=== PATIENT | male | born 1975 | race Caucasian/White ===

== ENCOUNTER 2016-10-04 16:07 | Emergency (ER) | payer MEDICARE, OTHER | END 2016-10-04 17:20 | disposition home or self-care (01) | LOC: FER 16:07 | DX: G44.209 Tension-type headache, unspecified, not intractable (principal); I47.1 Supraventricular tachycardia; F43.10 Post-traumatic stress disorder, unspecified; F17.200 Nicotine dependence, unspecified, uncomplicated; Z88.0 Allergy status to penicillin; Z88.8 Allergy status to other drugs, medicaments and biological substances | CPT/HCPCS: J1885 ==

== ENCOUNTER 2016-10-11 17:05 | Emergency (ER) | payer MEDICARE, OTHER | END 2016-10-11 19:04 | disposition home or self-care (01) | LOC: FER 17:05 | DX: J20.9 Acute bronchitis, unspecified (principal); K31.84 Gastroparesis; F17.210 Nicotine dependence, cigarettes, uncomplicated; Z88.0 Allergy status to penicillin; Z88.8 Allergy status to other drugs, medicaments and biological substances; Z79.899 Other long term (current) drug therapy | CPT/HCPCS: 71020; 94640 ==

== ENCOUNTER 2016-10-17 12:00 | Emergency (ER) | payer MEDICARE, OTHER ==
[2016-10-17 12:54] LABS: BASOPHIL 0.4 % (0-2); EOSINOPHIL 0.6 % (0-5); HCT 44.2 % (42.0-52.0); HGB 15.6 g/dl (13.2-18.0); LYMPHOCYTE 34.4 % (15-48); MCH 28.6 pg (25.0-31.0); MCHC 35.3 g/dL (32.0-36.0); MCV 81.1 fL (78.0-100.0); MONOCYTE 6.4 % (0-12); MPV 9.3 fL (6.0-9.5); NEUTROPHIL 58.2 % (41-80); PLT 277 K/uL (150-400); RBC 5.45 M/uL (4.70-6.00); RDW 13.3 % (11.5-14.0); WBC 10.2 K/uL (4.0-10.5)
[2016-10-17 13:08] LABS: BILIRUBIN NEGATIVE (NEGATIVE); BLOOD NEGATIVE Ery/uL (NEGATIVE); CLARITY CLEAR (CLEAR); COLOR YELLOW (YELLOW); GLUCOSE (U) NORMAL (NORMAL); KETONE (U) NEGATIVE (NEGATIVE); LEUKOCYTES NEGATIVE Leu/uL (NEGATIVE); NITRITE NEGATIVE (NEGATIVE); PROTEIN NEGATIVE (NEGATIVE); SPECIFIC GRAVITY <=1.005 (1.001-1.030); UROBILINOGEN 0.2 mg/dL (0.2-1.0)
[2016-10-17 13:15] LABS: CREATININE 1.3 mg/dL (0.7-1.2); POTASSIUM 4.3 mmol/L (3.5-5.1)
[2016-10-17 13:16] LABS: LYMPHOCYTE(M) 40 % (15-48); MONOCYTE(M) 6 % (0-12); NEUTROPHILS(M) 54 % (41-80); PLATELET ESTIMATE NORMAL; PLATELET MORPHOLOGY NORMAL; TOTAL CELL COUNT 100
[2016-10-17 13:17] LABS: BENZODIAZEPINES POSITIVE (NEGATIVE)
[2016-10-17 13:18] LABS: AMPHETAMINES NEGATIVE (NEGATIVE); BARBITURATES NEGATIVE (NEGATIVE); COCAINE NEGATIVE (NEGATIVE); MARIJUANA (THC) POSITIVE (NEGATIVE); METHADONE NEGATIVE (NEGATIVE); TRICYCLIC ANTIDEPRESSANT NEGATIVE (NEGATIVE)
== END 2016-10-17 14:27 | disposition home or self-care (01) ==
LOC: FER 12:00
PROVIDERS: Emergency Medicine
DX: J40 Bronchitis, not specified as acute or chronic (principal); M94.0 Chondrocostal junction syndrome [Tietze]; I11.9 Hypertensive heart disease without heart failure; I31.9 Disease of pericardium, unspecified; F41.9 Anxiety disorder, unspecified; F17.200 Nicotine dependence, unspecified, uncomplicated; Z87.19 Personal history of other diseases of the digestive system; Z88.0 Allergy status to penicillin; Z88.6 Allergy status to analgesic agent; Z88.8 Allergy status to other drugs, medicaments and biological substances; Z98.890 Other specified postprocedural states
CPT/HCPCS: 36415; 71010; 80048; 80305; 81003; 84484; 85379; 85651; 86140; 93005; 94640; J1885

== ENCOUNTER 2016-11-08 19:57 | Emergency (ER) | payer MEDICARE, OTHER ==
[2016-11-08 21:11] LABS: BILIRUBIN NEGATIVE (NEGATIVE); BLOOD 1+ Ery/uL (NEGATIVE); CLARITY CLEAR (CLEAR); COLOR YELLOW (YELLOW); GLUCOSE (U) NORMAL (NORMAL); KETONE (U) NEGATIVE (NEGATIVE); LEUKOCYTES NEGATIVE Leu/uL (NEGATIVE); NITRITE NEGATIVE (NEGATIVE); PROTEIN NEGATIVE (NEGATIVE); SPECIFIC GRAVITY <=1.005 (1.001-1.030); UROBILINOGEN 0.2 mg/dL (0.2-1.0)
[2016-11-08 21:20] LABS: MUCOUS MODERATE; SQUAMOUS EPITHELIAL CELLS RARE
[2016-11-08 21:37] LABS: BASOPHIL 0.2 % (0-2); EOSINOPHIL 0.3 % (0-5); HCT 46.4 % (42.0-52.0); HGB 16.1 g/dl (13.2-18.0); LYMPHOCYTE 22.2 % (15-48); MCH 28.2 pg (25.0-31.0); MCHC 34.7 g/dL (32.0-36.0); MCV 81.3 fL (78.0-100.0); MONOCYTE 12.7 % (0-12); MPV 9.3 fL (6.0-9.5); NEUTROPHIL 64.6 % (41-80); PLT 249 K/uL (150-400); RBC 5.71 M/uL (4.70-6.00); RDW 13.8 % (11.5-14.0); WBC 12.2 K/uL (4.0-10.5)
[2016-11-08 22:18] LABS: ALBUMIN 3.8 g/dL (3.5-5.0); BILIRUBIN - TOTAL 0.4 mg/dL (0.1-1.0); CREATININE 1.2 mg/dL (0.7-1.2); GLOBULIN (CALCULATION) 3.6 g/dL (2.2-4.2); POTASSIUM 3.8 mmol/L (3.5-5.1); TOTAL PROTEIN 7.4 g/dL (6.4-8.3)
== END 2016-11-08 23:10 | disposition home or self-care (01) ==
LOC: FER 19:57
PROVIDERS: Nurse Practitioner Family
DX: R31.9 Hematuria, unspecified (principal); R19.7 Diarrhea, unspecified; R11.2 Nausea with vomiting, unspecified; R50.9 Fever, unspecified; J44.9 Chronic obstructive pulmonary disease, unspecified; F17.210 Nicotine dependence, cigarettes, uncomplicated; Z88.0 Allergy status to penicillin; Z88.3 Allergy status to other anti-infective agents
CPT/HCPCS: 36415; 80053; 81001; 85025

== ENCOUNTER 2020-09-27 20:52 | Emergency (ER) | payer MEDICARE, OTHER ==
[~2020-09-27 20:52] MED LIST: COMBIVENT RESPIM4 GM INH; MUCINEX D ER 61 EACH PO; PROAIR HFA8.5 GM INH; TESSALON PERLE100 M1 PO; VIBRAMYCIN100 MG PO
[2020-09-27 21:48] LABS: BASOPHIL 0.5 % (0-2); HCT 46.4 % (42.0-52.0); HGB 15.4 g/dl (13.2-18.0); LYMPHOCYTE 41.7 % (15-48); MCH 28.7 pg (25.0-31.0); MCHC 33.2 g/dL (32.0-36.0); MCV 86.6 fL (78.0-100.0); MONOCYTE 7.4 % (0-12); NEUTROPHIL 49.1 % (41-80); NRBC 0; PLT 256 K/uL (150-400); RBC 5.36 M/uL (4.70-6.00); RDW 13.2 % (11.5-14.0); WBC 11.6 K/uL (4.0-10.5)
[2020-09-27 21:59] LABS: INR 1.07 (0.9-1.2); PROTHROMBIN TIME 13.2 SECONDS (11.4-13.6)
[2020-09-27 22:05] LABS: BUN/CREAT RATIO (CALC) 11.3 RATIO; CREATININE 1.15 mg/dL (0.67-1.17); MAGNESIUM 1.9 mg/dL (1.8-2.4); POTASSIUM 3.8 mmol/L (3.5-5.1)
== END 2020-09-27 22:00 | disposition home or self-care (01) ==
LOC: FER 20:52
PROVIDERS: Nurse Practitioner Family
DX: I49.3 Ventricular premature depolarization (principal); Z98.890 Other specified postprocedural states; Z88.0 Allergy status to penicillin
CPT/HCPCS: 36415; 71045; 80048; 83735; 84484; 85025; 85610; 93005; J1885

== ENCOUNTER 2021-04-09 22:57 | Emergency (ER) | payer MEDICARE, OTHER ==
[2021-04-09 23:30] LABS: BASOPHIL 0.3 % (0-2); EOSINOPHIL 0.7 % (0-5); HCT 48.9 % (42.0-52.0); HGB 15.8 g/dl (13.2-18.0); LYMPHOCYTE 43.4 % (15-48); MCH 28.2 pg (25.0-31.0); MCHC 32.3 g/dL (32.0-36.0); MCV 87.3 fL (78.0-100.0); MONOCYTE 6.6 % (0-12); MPV 9.7 fL (6.0-9.5); NEUTROPHIL 48.7 % (41-80); NRBC 0; PLT 275 K/uL (150-400); RDW 13.2 % (11.5-14.0)
[2021-04-09 23:31] LABS: WBC 11.6 K/uL (4.0-10.5)
[2021-04-09 23:41] LABS: ALBUMIN 3.7 g/dL (3.4-5.0); BILIRUBIN - TOTAL 0.5 mg/dL (0.2-1.0); BUN/CREAT RATIO (CALC) 8.7 RATIO; CREATININE 1.27 mg/dL (0.67-1.17); GLOBULIN (CALCULATION) 3.9 g/dL; POTASSIUM 3.8 mmol/L (3.5-5.1); TOTAL PROTEIN 7.6 g/dL (6.4-8.2)
[2021-04-10] MEDS ORDERED: CYCLOBENZAPRINE10 MG PO (02:39)
[2021-04-10] MEDS ORDERED: ONDANSETRON ODT4 MG PO (02:39)
== END 2021-04-10 03:15 | disposition home or self-care (01) ==
LOC: FER 22:57
PROVIDERS: Internal Medicine
DX: R07.89 Other chest pain (principal); R11.0 Nausea; F17.210 Nicotine dependence, cigarettes, uncomplicated; Z88.0 Allergy status to penicillin
CPT/HCPCS: 36415; 71045; 80053; 83690; 84145; 84484; 85025; 85379; 93005; J1885; J2270; J2405; J7030

== ENCOUNTER 2021-09-15 22:43 | Emergency (ER) | payer MEDICARE, OTHER ==
[~2021-09-15 22:43] MED LIST changes: +CYCLOBENZAPRINE10 MG PO; +ONDANSETRON ODT4 MG PO
[2021-09-15 23:03] LABS: BASOPHIL 0.6 % (0-2); HCT 51.2 % (42.0-52.0); HGB 16.9 g/dl (13.2-18.0); MCH 28.3 pg (25.0-31.0); MCV 85.8 fL (78.0-100.0); MONOCYTE 7.2 % (0-12); MPV 9.8 fL (6.0-9.5); NEUTROPHIL 49.4 % (41-80); NRBC 0; PLT 285 K/uL (150-400); RBC 5.97 M/uL (4.70-6.00); RDW 12.9 % (11.5-14.0); WBC 12.4 K/uL (4.0-10.5)
[2021-09-15 23:07] LABS: LYMPHOCYTE 41.6 % (15-48)
[2021-09-15 23:25] LABS: BUN/CREAT RATIO (CALC) 10.2 RATIO; CREATININE 1.27 mg/dL (0.67-1.17); POTASSIUM 3.6 mmol/L (3.5-5.1)
== END 2021-09-16 00:17 | disposition home or self-care (01) ==
LOC: FER 22:43
PROVIDERS: Internal Medicine
DX: R07.89 Other chest pain (principal); I49.3 Ventricular premature depolarization; F41.9 Anxiety disorder, unspecified; F17.210 Nicotine dependence, cigarettes, uncomplicated; Z88.0 Allergy status to penicillin; Z88.8 Allergy status to other drugs, medicaments and biological substances; Z28.310 Unvaccinated for COVID-19
CPT/HCPCS: 36415; 71045; 80048; 84145; 84484; 85025; 93005; J1885; J2060

== ENCOUNTER 2021-10-14 00:33 | Emergency (ER) | payer MEDICARE, OTHER ==
[2021-10-14] MEDS ORDERED: VIBRAMYCIN100 MG PO (01:32)
== END 2021-10-14 01:35 | disposition home or self-care (01) ==
LOC: FER 00:33
DX: S81.852A Open bite, left lower leg, initial encounter (principal); F17.200 Nicotine dependence, unspecified, uncomplicated; Z88.0 Allergy status to penicillin; Z28.310 Unvaccinated for COVID-19; W57.XXXA Bitten or stung by nonvenomous insect and other nonvenomous arthropods, initial encounter
CPT/HCPCS: 99281